=== PATIENT | male | born 1955 | race Caucasian/White ===

== ENCOUNTER 2020-10-15 10:29 | Outpatient (REF) | payer MEDICAID, SELFPAY ==
--- NOTE | 2020-10-15 10:00 | SKI_PTH ---
PATIENT: Duong Waggoner LOC: [facility] U#:[id number] AGE/SX: 65/M ROOM: RE10/15/[address]: Janell Matta : 1955 BED: DIS: 10/15/2020 SPEC #: [id number] RECD: 10/18/20 12:58 STATUS: ELADIO REMagalis #: [id number] MARCELINA: 10/15/20 10:[address]: Janell Ortiz V DEPT: Surgical Specimen RECD BY: Opal Gates ENTERED: 10/18/20 12:58 SP TYPE: AYANA BARRAZA DR: Jo Reid Tissues: 1 - SKIN BIOPSY(SHAVE/PUNCH) Procedures: SKIN LEVEL 4 Comments: [id number]
== END 2020-10-15 10:30 | disposition home or self-care (01) ==
LOC: NCHCN 10:29
PROVIDERS: PCP Registered Nurse; Visit Provider Family Medicine
DX: C44.519 Basal cell carcinoma of skin of other part of trunk (principal)
CPT/HCPCS: 88305

== ENCOUNTER 2021-12-20 18:28 | Outpatient (REF) | payer MEDICARE, MEDICAID, SELFPAY ==
--- NOTE | 2021-12-20 17:30 | SKI_PTH ---
PATIENT: Duong Waggoner LOC: [facility]#:[id number] AGE/SX: 66/M ROOM: RE12/20/[address]: Michele Pantoja : 1955 BED: DIS: 12/20/2021 SPEC #: [id number] RECD: 12/21/21 12:59 STATUS: ELADIO REQ #: [id number] MARCELINA: 12/20/21 17:[address]: Michele Pantoja DEPT: Surgical Specimen RECD BY: Opal Gates ENTERED: 12/21/21 12:59 SP TYPE: AYANA BARRAZA DR: Jo Reid Tissues: 1 - SKIN BIOPSY(SHAVE/PUNCH) 2 - SKIN BIOPSY(SHAVE/PUNCH) Procedures: SKIN LEVEL 4 Comments: [id number]
== END 2021-12-20 18:29 | disposition home or self-care (01) ==
LOC: NCHCN 18:28
PROVIDERS: PCP Registered Nurse; Visit Provider Internal Medicine
DX: C44.519 Basal cell carcinoma of skin of other part of trunk (principal)
CPT/HCPCS: 88305